=== PATIENT | male | born 1970 | race Caucasian/White ===

== ENCOUNTER 2018-06-05 00:56 | Outpatient (CLI) | payer MEDICAID, SELFPAY ==
--- NOTE | 2018-06-05 23:21 | DI.CT_ITS ---
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 On the left, there is some thickening of the inferior aspect of the tympanic membrane. No soft tissue is seen medial or lateral to the middle ear ossicles to suggest a cholesteatoma. The internal auditory canals, semi circular canals and cochlea appear grossly unremarkable on the left. The mastoid air cells on the left are well pneumatized. The ossicles appear grossly unremarkable without definite evidence of erosion. The external auditory canal appears grossly unremarkable. No findings to suggest an external auditory canal cholesteatoma is identified. There is a small amount of fluid in the middle ear on the right. IMPRESSION: 1. Prominence of the left tympanic membrane. This may represent injury. No findings to suggest a cholesteatoma is appreciated.
--- NOTE | 2018-06-08 00:20 | DI.VRAD_ITS ---
EXAM: CT Orbits Without Contrast EXAM DATE/TIME: 06/05/2018 1:31 PM CLINICAL HISTORY: 47 years old, male; Signs and symptoms; Other: Otalgia lt ear; Patient HX: Otalgia left ear, otorrhea lt ear TECHNIQUE: Axial computed tomography images of the orbits without intravenous contrast. All CT scans at this facility use at least one of these dose optimization techniques: automated exposure control; mA and/or kV adjustment per patient size (includes targeted exams where dose is matched to clinical indication); or iterative reconstruction. Coronal and sagittal reformatted images were created and reviewed. COMPARISON: No relevant prior studies available. FINDINGS: Orbits: No acute intraorbital abnormality. Globes are unremarkable. Sinuses: Normal. No air-fluid levels. Bones/joints: No acute fracture. Auditory system: Trace opacification of the left and mild opacification of the right middle ear. Soft tissues: No significant facial soft tissue swelling. IMPRESSION: Trace opacification of the left and mild opacification of the right middle ear. Dictated and Authenticated by: Hair Cardona MD. Ordering:IESHA Donis MD
== END 2018-06-05 01:16 ==
PROVIDERS: PCP Neuromusculoskeletal Medicine & OMM; Visit Provider Physician Assistant
DX: H92.02 Otalgia, left ear (principal); H92.12 Otorrhea, left ear; H72.02 Central perforation of tympanic membrane, left ear
CPT/HCPCS: 70480

== ENCOUNTER 2019-10-18 15:07 | Outpatient (REF) | payer MEDICAID, SELFPAY ==
[2019-10-19 12:27] LABS: COVID-19 RT-PCR UVMMC Result Negative (Negative)
== END 2019-10-18 15:27 ==
LOC: LBN 15:07
PROVIDERS: PCP Neuromusculoskeletal Medicine & OMM; Visit Provider Otolaryngology Otology & Neurotology
DX: Z11.59 Encounter for screening for other viral diseases (principal); Z01.818 Encounter for other preprocedural examination
CPT/HCPCS: U0003

== ENCOUNTER 2021-06-27 13:19 | Outpatient (REF) | payer MEDICAID, SELFPAY ==
[2021-06-27 15:49] LABS: *AMPHETAMINES SCREEN URINE Negative (Negative); *BARBITURATES SCREEN URINE Negative (Negative); *BENZODIAZEPINES SCREEN URINE Positive (Negative); Cannabinoids THC Positive (Negative); Cocaine Screen,Urine Negative (Negative); METHADONE URINE SCREEN Negative (Negative); OPIATES URINE SCREEN Negative (Negative)
[2021-06-27 16:03] LABS: Tricyclic Antidepressants Positive (Negative)
== END 2021-06-27 13:20 | disposition home or self-care (01) ==
LOC: LBN 13:19
PROVIDERS: PCP Neuromusculoskeletal Medicine & OMM; Visit Provider Nurse Practitioner Psychiatric/Mental Health
DX: F32.9 Major depressive disorder, single episode, unspecified (principal)
CPT/HCPCS: 80307

== ENCOUNTER 2021-07-05 13:26 | Outpatient (CLI) | payer MEDICAID, SELFPAY ==
--- NOTE | 2021-07-05 11:15 | DI.RAD_ITS ---
Exam(s) XR FINGER RT INDEX EXAM: XR FINGER RT INDEX CLINICAL HISTORY: finger mass. TECHNIQUE: 2D digital imaging was performed of the right finger. Three views were obtained. PA/AP, oblique, and lateral views were obtained. COMPARISON: No exams were available for comparison FINDINGS: BONES: No acute fracture is present. No bony destructive lesion is seen. JOINTS: No dislocation present. SOFT TISSUE: Normal. No soft tissue calcifications. IMPRESSION: No bone, joint or soft tissue abnormalities identified. If there is concern for soft tissue mass, MR I should be considered for further evaluation. DATA REPOSITORY: RADIATION DOSE DELIVERED:
== END 2021-07-05 13:27 | disposition home or self-care (01) ==
LOC: DIORS 13:27
PROVIDERS: PCP Neuromusculoskeletal Medicine & OMM; Referring Provider Neuromusculoskeletal Medicine & OMM; Visit Provider Physician Assistant
DX: R22.31 Localized swelling, mass and lump, right upper limb (principal); M79.644 Pain in right finger(s); M79.89 Other specified soft tissue disorders
CPT/HCPCS: 73140

== ENCOUNTER 2021-07-17 10:50 | Outpatient (CLI) | payer MEDICAID, SELFPAY ==
[2021-07-17 12:54] LABS: Source Nasal/Nares
[2021-07-17 16:06] LABS: COVID-19 PCR Negative (Negative)
== END 2021-07-17 10:51 | disposition home or self-care (01) ==
LOC: LBO 10:51
PROVIDERS: PCP Neuromusculoskeletal Medicine & OMM; Visit Provider Student in an Organized Health Care Education/Training Program
DX: Z20.822 Contact with and (suspected) exposure to COVID-19 (principal); Z01.818 Encounter for other preprocedural examination
CPT/HCPCS: 87635

== ENCOUNTER 2021-07-18 09:54 | Day surgery (SDC) | payer MEDICAID, SELFPAY ==
--- NOTE | 2021-07-18 07:43 | W.PM.DSUDISC ---
Discharge Plan Disposition Patient Disposition: HOME Condition: Good Discharge Details Reason For Visit: Cyst Excision Attending Provider: Peña Perla Primary Care Provider: Lucas Rizvi [place] Meds and New Rx's Prescriptions: Continued gabapentin 600 mg tablet 600 mg PO TID 0RF clonidine HCl [Catapres] 0.1 MG tablet 0.1 mg PO PRN PRN0RF clonazepam 0.5 MG tablet 0.5 mg PO TID 0RF estradiol [Estrace] 2 MG tablet 2 mg PO DAILY 0RF spironolactone 50 MG tablet 50 mg PO DAILY 0RF melatonin 1 MG tablet PO HS PRN PRN0RF buprenorphine-naloxone [Suboxone] 1 EACH film 2 ea Sublingual DAILY 0RF ibuprofen 600 MG tablet 600 mg PO Q6H PRN (Reason: Pain) Qty: 20 0RF Discharge Instructions Additional Instructions: Discharge Instructions Activity: You should keep the hand elevated as much as possible for the first few days. You may use the other fingers as tolerated but avoid trying to do too much too soon. You may perform light activities. Dressing/Cast: keep covered clean and dry, may remove dressing after 72 hours. Medications: - You should take Tylenol and Ibuprofen for baseline pain control. - You may apply ice over the finger. Follow-up: 7-10 days Referrals: Peña Perla MD [ [facility] STAFF PHYSICIAN] - Activity:: Activity as Tolerated Remove Dressings/Wound Care:: 72 hours Shower/Bathe:: 72 hours Diet:: As Tolerated Discharge Orders Discharge Orders: Discharge Order (Routine); Ordered 07/18/21 Ordered By: Carri Zepeda DS: Diagnosis Discharge Diagnosis (1) Digital mucinous cyst of finger of right hand: Status: Acute
[2021-07-18 10:02] VITALS: BP 118/78; PULSE 77; RESP 18; TEMP 36.3; O2SAT 98
[2021-07-18] MEDS: Sodium Bicarbonate 50 MEQ/50 ML VIAL (12:25)
[2021-07-18] MEDS: Lidocaine 1% Multi-Dose 50 ML VIAL (12:25)
[2021-07-18 12:39] VITALS: PULSE 76; RESP 18; TEMP 36.5; O2SAT 98
--- NOTE | 2021-07-18 15:42 | W.PM.OP ---
Date of service: 07/18/21 Time of Service: 13:20 Operative Note Operative Note DATE OF PROCEDURE: 07/18/21 PRE-OP DIAGNOSIS: Right index finger PIP cyst POST-OP DIAGNOSIS: same PROCEDURE: Cyst Excision -right index finger SURGEON: Peña Perla ANESTHESIA TYPE: Local By Surgeon Refer to Anesthesia Record ESTIMATED BLOOD LOSS: 5 PATHOLOGY: none sent COMPLICATIONS: None Patient was transported to: same day Patient's condition: stable Indications: I have seen Kp in clinic for symptoms of a digital cyst. It originate from the PIP joint rather than the DIP joint which made it somewhat unique. The mass persisted and caused pain to direct contact and with use. The diagnosis of a cyst was made. The symptoms had not responded to conservative measures. I discussed cyst excision with the patient. I reviewed the risks of the procedure to include, but not limited to, bleeding, infection, pain, stiffness, recurrence, damage to nerves or vessels. Despite these risks, the patient elected to proceed. Findings: There was a cyst of the PIP joint. It seemed to be an inclusion cyst sitting on top of the capsule. There was some surrounding inflammatory tissue as well. Cyst and its capsule was removed and and a debridement of surrounding synovitis at the level of the joint capsule was performed Procedure Description: Kp was greeted in the preoperative holding area where the correct side was identified and marked. The consent was reviewed with the patient and signed. All questions were answered. Kp was taken back to the operating room. The patient was placed into the supine position on the operating room table with the right arm on an arm board. All bony prominences were well padded. No prophylactic antibiotics were administered since this was a clean, elective hand surgical case. The right arm was then prepped with Chloraprep and draped in a standard fashion with stockinette and extremity drape. A timeout to confirm correct identity, side and site, procedure, allergies, anesthesia, and medical concerns was performed. A digital block was then performed using 1% lidocaine buffered with sodium bicarbonate. This was allowed time to set up completely and was tested before proceeding with the case. A longitudinal incision was then made overlying the cyst. The skin was incised sharply. Full-thickness flaps were then elevated to expose the cyst. For improvement of visualization a Arthur drain was placed as a tourniquet around the base of the finger for approximately 5 minutes. The cyst capsule was then removed with a rongeur. The cyst was apparently an inclusion cyst. There was not the typical mucinous cyst contents but there were three or four dense white flakes which were removed. There was surrounding synovitis which was also debrided with a rongeur. The PIP joint capsule was inspected and did not show any signs of cystic penetration. The finger was irrigated and once again checked to make sure that all components of the cyst were removed. The skin was then closed using a #4-0 nylon in interrupted fashion. The finger was dressed with Xeroform, 4 x 4, conform dressing. The patient tolerated the procedure well and was returned to the Same Day Surgery area in a stable condition suffering no known complication.
== END 2021-07-18 13:04 | disposition home or self-care (01) ==
LOC: SUR 09:55
PROVIDERS: PCP Neuromusculoskeletal Medicine & OMM; Visit Provider Student in an Organized Health Care Education/Training Program
PROC: (CPT 26160; principal; 2021-07-18 12:00)
DX: M67.441 Ganglion, right hand (principal); M25.841 Other specified joint disorders, right hand
CPT/HCPCS: 26160

== ENCOUNTER 2021-08-27 13:19 | Outpatient (REF) | payer MEDICAID, SELFPAY ==
[2021-08-27 15:46] LABS: *AMPHETAMINES SCREEN URINE Negative (Negative); *BARBITURATES SCREEN URINE Negative (Negative); *BENZODIAZEPINES SCREEN URINE Negative (Negative); Cannabinoids THC Negative (Negative); Cocaine Screen,Urine Negative (Negative); METHADONE URINE SCREEN Negative (Negative); OPIATES URINE SCREEN Negative (Negative)
[2021-08-27 15:47] LABS: Tricyclic Antidepressants Negative (Negative)
== END 2021-08-27 13:20 | disposition home or self-care (01) ==
LOC: NCHCN 13:19
PROVIDERS: Nurse Practitioner Psychiatric/Mental Health; PCP Neuromusculoskeletal Medicine & OMM; Visit Provider Psychiatry & Neurology Psychiatry
DX: F11.21 Opioid dependence, in remission (principal)
CPT/HCPCS: 80307

== ENCOUNTER 2021-11-23 11:22 | Outpatient (REF) | payer MEDICAID, SELFPAY ==
[2021-11-23 11:41] LABS: *AMPHETAMINES SCREEN URINE Negative (Negative); *BARBITURATES SCREEN URINE Negative (Negative); *BENZODIAZEPINES SCREEN URINE Negative (Negative); Cannabinoids THC Positive (Negative); Cocaine Screen,Urine Negative (Negative); METHADONE URINE SCREEN Negative (Negative); OPIATES URINE SCREEN Negative (Negative)
[2021-11-23 11:43] LABS: Tricyclic Antidepressants Negative (Negative)
[2021-11-29 11:07] LABS: Buprenorphine 23.1 ng/mL (Cutoff: 5.0); Norbuprenorphine 295.6 ng/mL (Cutoff: 2.5)
== END 2021-11-23 11:23 | disposition home or self-care (01) ==
LOC: LBN 11:22
PROVIDERS: PCP Neuromusculoskeletal Medicine & OMM; Visit Provider Nurse Practitioner Psychiatric/Mental Health
DX: F11.21 Opioid dependence, in remission (principal)
CPT/HCPCS: 80307

== ENCOUNTER 2021-11-28 13:41 | Outpatient (REF) | payer MEDICAID, SELFPAY ==
[2021-11-28 13:14] LABS: *AMPHETAMINES SCREEN URINE Negative (Negative); *BARBITURATES SCREEN URINE Negative (Negative); *BENZODIAZEPINES SCREEN URINE Negative (Negative); Cannabinoids THC Positive (Negative); Cocaine Screen,Urine Negative (Negative); METHADONE URINE SCREEN Negative (Negative); OPIATES URINE SCREEN Negative (Negative)
[2021-11-28 13:17] LABS: Tricyclic Antidepressants Negative (Negative)
== END 2021-11-28 13:42 | disposition home or self-care (01) ==
LOC: LBN 13:41
PROVIDERS: PCP Neuromusculoskeletal Medicine & OMM; Visit Provider Nurse Practitioner Psychiatric/Mental Health
DX: F32.9 Major depressive disorder, single episode, unspecified (principal); F11.21 Opioid dependence, in remission
CPT/HCPCS: 80307